=== PATIENT | male | born 1975 ===

== ENCOUNTER 2018-06-27 19:23 | Emergency (ER) | payer OTHER ==
[2018-06-27 19:59] VITALS: BP 134/80; PULSE 78; RESP 18; TEMP 98.6; O2SAT 98
--- NOTE | 2018-06-27 20:58 | ED PDOC ---
HPI: Back Time Seen by Provider: 06/27/18 20:33 Chief Complaint (Nursing): Back Pain Chief Complaint (Provider): Back Pain History Per: Patient, Process Checker (ABRAHAM [id number]) History/Exam Limitations: no limitations Onset/Duration Of Symptoms: Days Current Symptoms Are (Timing): Still Present Additional Complaint(s): Quintin Cali is a 42 year old male with no past medical history who is presenting to the ED for evaluation of intermittent right lower back pain onset 2 days ago. Patient states that the pain is a burning/pinching sensation that is worsened when changing positions. He states that the pain began after he was lifting a piece of plywood and adds that he has been using Aleve with the last dosage at 9am today. Patient denies any urinary symptoms, saddle anesthesia, nausea, vomiting, fevers, chest pain, SOB, weakness/numbness, IVDA, or abdominal pain. PMD: none provided Past Medical History Reviewed: Historical Data, Nursing Documentation, Vital Signs Vital Signs: Last Vital Signs Temp 98.6 F 06/27/18 19:55 Pulse 78 06/27/18 19:55 Resp 18 06/27/18 19:55 BP 134/80 06/27/18 19:55 Pulse Ox 98 06/27/18 19:55 - Medical History PMH: No Chronic Diseases - Surgical History Surgical History: No Surg Hx - Family History Family History: States: Unknown Family Hx - Social History Current smoker - smoking cessation education provided: No Alcohol: None Drugs: Denies - Home Medications Home Medications: Ambulatory Orders Medication Instructions Recorded Acetaminophen [Tylenol 325mg tab] 650 mg PO Q6 #30 tab 08/05/16 Cyclobenzaprine [Cyclobenzaprine 10 mg PO Q8 PRN #12 tab 06/27/18 HCl] Meloxicam [Mobic] 15 mg PO DAILY PRN #10 tab 06/27/18 - Allergies Allergies/Adverse Reactions: Allergies Allergy/AdvReac Type Severity Reaction Status Date / Time No Known Allergies Allergy Verified 06/27/18 19:58 Review of Systems ROS Statement: Except As Marked, All Systems Reviewed And Found Negative Constitutional: Negative for: Fever Cardiovascular: Negative for: Chest Pain Gastrointestinal: Negative for: Nausea, Vomiting, Abdominal Pain Genitourinary Male: Negative for: Other (urinary symptoms) Musculoskeletal: Positive for: Back Pain Neurological: Negative for: Weakness, Numbness Physical Exam - Reviewed Nursing Documentation Reviewed: Yes Vital Signs Reviewed: Yes - Physical Exam Comments: GENERAL APPEARANCE: Patient is awake, alert, oriented x 3, in no acute distress. Uncomfortable appearing. SKIN: Warm, dry; (-) cyanosis. CHEST AND RESPIRATORY: (-) rales, (-) rhonchi, (-) wheezes; breath sounds equal bilaterally. Respirations even and nonlabored. NECK: Supple, FROM ENT: Mucus membranes moist. Airway patent, (-) stridor. HEART AND CARDIOVASCULAR: (-) irregularity ABDOMEN AND GI: Soft; (-) tenderness (-) guarding (-) distention; (-) palpable mass. BACK: (+) right paralumbar and sciatic notch tenderness, (-) CVA tenderness. (- ) direct bony tenderness, (-) deformity. EXTREMITIES: (-) deformity. Distal pulses good bilaterally. NEURO AND PSYCH: Mental status as above. Intact sensation bilaterally; normal strength in extension of the knees, plantar and dorsiflexion of the toes. Gait is steady in ED. Speech: clear. (-) facial asymmetry (-) aphasia. - ECG O2 Sat by Pulse Oximetry: 98 (RA) Pulse Ox Interpretation: Normal Medical Decision Making Medical Decision Making: Time: 20:50 Impression: acute back pain Plan: --Flexeril 10 mg PO --Toradol 30 mg IM --Ultram 50 mg PO (Not driving home) --Re-evaluation 2220 On re-evaluation, patient reports improvement of symptoms. On exam, patient remains AAOx3, in no acute distress. Lungs clear to auscultation, cardiac RRR, abdomen soft, non-tender, repeat neuro exam shows no focal findings. Gait steady in ED without assistance. Vitals stable. Lab/Diagnostic results d/w the patient in great detail. Diagnosis of acute back pain d/w the patient. Based on history, exam and diagnostic results, plan will be for outpatient follow upwith clinic/ortho. Patient instructed to follow-up with pmd / referral provided / the clinic in 1- 2 days without fail. Advised to take medication as prescribed. Return to the emergency room at any time for any new or worsening symptoms. Patient states he fully agrees with and understands discharge instructions. States that he agrees with the plan and disposition. Verbalized and repeated discharge instructions and plan. I have given the patient opportunity to ask any additional questions. Scribe Attestation: Documented by Ashli Byrne, acting as a scribe for Chiquita Lemus PA-C. Provider Scribe Attestation: All medical record entries made by the Scribe were at my direction and personally dictated by me. I have reviewed the chart and agree that the record accurately reflects my personal performance of the history, physical exam, medical decision making, and the department course for this patient. I have also personally directed, reviewed, and agree with the discharge instructions and disposition. Disposition - Clinical Impression Clinical Impression: Low back pain - Patient ED Disposition Is Patient to be Admitted: No Counseled Patient/Family Regarding: Studies Performed, Diagnosis, Need For Followup, Rx Given - Disposition Referrals: [facility] [Outside] Crispin Morris III, MD [Staff Provider] - Disposition: Routine/Home Disposition Time: 22:20 Condition: STABLE Additional Instructions: La atencin mdica de emergencia que recibi hoy se dirigi a neyda sntomas agudos. Si le recetaron algn medicamento, llnelo y tmelo segn las indicaciones. Los sntomas pueden tardar varios bingham en resolverse. Regrese al Departamento de Emergencias si neyda sntomas empeoran, no mejoran o si tiene otros problemas. Comunquese con douglas mdico dentro de 2 bingham para luis alfredo nueva evaluacin y paige un seguimiento o llame a leticia de los mdicos / clnicas a los que tee sido referido y que figuran en el formulario de Informacin de visita al paciente que se incluye en douglas paquete de patricia. Lleve con usted a douglas consulta de seguimiento toda la documentacin que recibi del patricia junto con los medicamentos que est tomando. Nuestro tratamiento no puede reemplazar la atencin mdica continua por parte de un proveedor de atencin primaria (PCP) fuera del departamento de emergencias. Prescriptions: Cyclobenzaprine [Cyclobenzaprine HCl] 10 mg PO Q8 PRN #12 tab PRN Reason: Muscle Spasm Meloxicam [Mobic] 15 mg PO DAILY PRN #10 tab PRN Reason: Pain, Moderate (4-7) Instructions: Low Back Pain in Adults, Muscle Spasms (DC), Muscle and Bone Pain (DC), Lumbar Muscle Strain Forms: [employer] (Macedonian) Print Language: PALESTINIAN - POA Present On Arrival: None
== END 2018-06-27 22:34 | disposition home or self-care (01) ==
LOC: H.ER 19:23
DX: M54.5 Low back pain (principal); X50.0XXA Overexertion from strenuous movement or load, initial encounter; Y99.0 Civilian activity done for income or pay
CPT/HCPCS: 96372; 99283; J1885